=== PATIENT | female | born 1995 | race Caucasian/White ===

== ENCOUNTER 2017-01-14 14:53 | Emergency (ER) | payer OTHER ==
[~2017-01-14] VITALS: Ht 170.2 cm; Wt 62.0 kg
[2017-01-14 14:57] VITALS: BP 117/74; PULSE 66; RESP 17; TEMP 98.1; O2SAT 98
--- NOTE | 2017-01-14 15:41 | PD ---
HPI . Left eye/face pain Chief Complaint: Head Injury Time Seen by Provider: 15:17 Travel History International Travel<30 days: No Contact w/Intl Traveler<30days: No Traveled to known affect area: No History of Present Illness HPI 21-year-old female with multiple medical issues including chronic back pain receiving epidurals, knee pain and ankle injury secondary chair leaning here with complaints of left eye and facial pain. Patient was in the middle of a cheerleading routine when she was accidentally elbowed in her left eye and face. Patient is now complaining of pain in the left eye and inability to open it. She also reports some sensitivity with the light to her left eye. There is no obvious deformity, edema or ecchymosis. She tells me that the pain is present, but she declines any analgesia. She is accompanied by both of her parents. [facility] Past Medical History Medical History: Denies Significant Hx Tetanus Vaccination: < 5 Years Influenza Vaccination: No ?: Not LMP: 12/2016 Past Surgical History Appendectomy: Yes Social History Alcohol Use: No Tobacco Use: No Substance Use: No Allergies-Medications (Allergen,Severity, Reaction): Coded Allergies: No Known Allergies (Unverified , 01/14/17) Reported Meds & Prescriptions Reported Meds & Active Scripts Active No Active Prescriptions or Reported Medications Review of Systems General / Constitutional: No: Fever Eyes: Positive: Blurred Vision, Photophobia, Pain, Tearing, No: Visual changes HENT: No: Headaches Cardiovascular: No: Chest Pain or Discomfort Respiratory: No: Shortness of Breath Gastrointestinal: No: Abdominal Pain Genitourinary: No: Dysuria Musculoskeletal: No: Pain Skin: No Rash Neurologic: No: Weakness Psychiatric: No: Depression Endocrine: No: Polydipsia Hematologic/Lymphatic: No: Easy Bruising Physical Exam Narrative GENERAL: AAO x 3, no acute distress, Well-nourished, well-developed patient. SKIN: Warm and dry. No visible rashes or bruising. HEAD: Normocephalic and atraumatic. EYES: No scleral icterus. No injection or drainage. Difficult to assess EOM as patient has significant pain. She has decreased ability to open her left eye. Right eye exam in WNL. Left eye with photophobia. ENT: No nasal drainage noted. Mucous membranes pink. Airway patent. NECK: Supple, trachea midline. No JVD. CARDIOVASCULAR: Regular rate and rhythm without murmurs, gallops, or rubs. RESPIRATORY: Breath sounds equal bilaterally. No accessory muscle use. No rhonchi or rales. GASTROINTESTINAL: Abdomen soft, non-tender, nondistended. EXTREMITIES: No cyanosis or edema. BACK: Nontender without obvious deformity. No CVA tenderness. PSYCH: AAO x 3, normal affect. Data Data Last Documented VS Vital Signs Date Time Temp Pulse Resp B/P Pulse Ox O2 Delivery O2 Flow Rate FiO2 01/14/17 15:20 Room Air 01/14/17 14:57 98.1 66 17 117/[address] Facial Bones W/O Iv Cont (01/14/17 15:22) Ed Urine Pregnancytest Poc (01/14/17 15:22) Oxycodone-Acetamin 5-325 Mg (Percocet (01/14/17 17:00) MDM Medical Decision Making Medical Screen Exam Complete: Yes Emergency Medical Condition: Yes Medical Record Reviewed: Yes Differential Diagnosis orbital floor facture, facial bone fracture, less likely fb eye Narrative Course 21-year-old female with multiple medical issues including chronic back pain receiving epidurals, knee pain and ankle injury secondary chair leaning here with complaints of left eye and facial pain. Patient was in the middle of a cheerleading routine when she was accidentally elbowed in her left eye and face. Patient is now complaining of pain in the left eye and inability to open it. She also reports some sensitivity with the light to her left eye. There is no obvious deformity, edema or ecchymosis. She tells me that the pain is present, but she declines any analgesia. She is accompanied by both of her parents. Patient seen and examined. She does have some difficulty moving her left eye. I will therefore proceed with a CT scan of the facial bones to look for any type of facial fracture/ 1652: checked on pain level and patient asked for something CT still pending: orbital blowout fracture: no entrapment on exam 1739: discussed with Dr. Butt, who asked me to hold the patient so he could evaluate her. I discussed with her and her family. 1854: Still waiting on Dr. Butt. Will transition case to next provider, who will determine her disposition. Diagnosis Primary Impression: Closed blow-out fracture of left orbit Qualified Code: S02.32XA - Closed blow-out fracture of left orbit, initial encounter Scripts No Active Prescriptions or Reported Meds Condition: Stable Kym Bryant Jan 14, 2017 15:41
[2017-01-14] MEDS ORDERED: oxyCODONE/ACETAMINOPHEN 5 MG/325 MG TAB PO ONE (17:00)
--- NOTE | 2017-01-14 17:10 | RADRPT ---
EXAM DATE/TIME: 01/14/2017 16:05 [facility] COMPARISON: No previous studies available for comparison. INDICATIONS : Trauma to left orbit and face. RADIATION DOSE: 39.39 CTDIvol (mGy) MEDICAL HISTORY : None SURGICAL HISTORY : None. ENCOUNTER: Initial ACUITY: 1 day PAIN SCORE: 8/10 LOCATION: Left facial TECHNIQUE: Volumetric scanning of the facial bones was performed. Using automated exposure control and adjustme nt of the mA and/or kV according to patient size, radiation dose was kept as low as reasonably achiev able to obtain optimal diagnostic quality images. FINDINGS: ORBITS: Reconstruction show normal blowout fracture with some air surrounding the muscle belly of the inferio r and medial rectus muscles. I suspect a lamina papyracea fracture as well with some air identified i n the medial extraconal space of the left orbit. NASAL BONE: The nasal bone and maxillary spine are intact ZYGOMATIC ARCHES: Symmetric without evidence of fracture. SINUSES: Air-fluid level in the left maxillary antra does contain some high density material and probably repr esents hemorrhage. Similar mixed density collection in the superior medial aspect of the left maxilla ry antra, in the region of the blowout fracture. Minimal mucoperiosteal thickening in the right maxil sundar antra. NASAL CAVITY: The nasal septum is intact and midline. The lacrimal ducts are intact. SOFT TISSUES: No radiopaque foreign bodies seen. No soft-tissue swelling is seen. INTRACRANIAL: No intracranial air seen. CRIBIFORM PLATE: Grossly intact. CONCLUSION: 1. Findings of trauma to the left side of the face with a minimally displaced inferior orbital blowou t fracture and suspected left-sided lamina papyracea fracture as evident by air in the anteromedial a spect of the left orbit. 2. Additional air is seen adjacent to the muscle bellies of the inferior and medial rectus muscles, a djacent to the orbital blowout fracture. 3. Air-fluid level in the left maxillary antra likely represents hemorrhage with mixed increased dens ity. 4. Minimal mucoperiosteal thickening in the right maxillary antra characteristic of mild chronic sinu s disease. . Toñito Darnell MD on January 14, 2017 at 17:02 Board Certified Radiologist. This report was verified electronically.
--- NOTE | 2017-01-14 19:37 | PD ---
Physical Exam Time Seen by Provider: 19:28 Data Data Last Documented VS Vital Signs Date Time Temp Pulse Resp B/P Pulse Ox O2 Delivery O2 Flow Rate FiO2 01/14/17 15:20 Room Air 01/14/17 14:57 98.1 66 17 117/[address] Facial Bones W/O Iv Cont (01/14/17 15:22) Ed Urine Pregnancytest Poc (01/14/17 15:22) Oxycodone-Acetamin 5-325 Mg (Percocet (01/14/17 17:00) Radiology Film Requests (01/14/17 ) [facility] Medical Record Reviewed: Yes Supervised Visit with RAMSEY: No Narrative Course This patient was signed out to me pending evaluation by craniofacial surgeon Dr. Butt. Briefly this is a 21-year-old female who was at a cheerleading competition today and was elbowed in the left orbit. She is now having left orbital pain, some photophobia. On examination her pupils are equal and round and reactive to light, extraocular muscles are intact. There is some direct photophobia but no consensual photophobia. There is no hyphema or hypopyon. There is no proptosis , no conjunctival injection or ciliary flush. She does have some tenderness to palpation to the inferior orbit. There is no bruising or soft tissue swelling. CT imaging reveals an inferior orbital blowout fracture and left sided lamina fracture. 2015: Dr. Butt came and saw the patient and recommends nonoperative treatment at this time. He does want the patient to follow-up in approximately 7-10 days with a craniofacial surgeon in [facility]. He will be providing her with the name of one that he recommends. He will recommends prescriptions for pain medication as well as Keflex. The patient is stable for discharge. Discharge instructions per Dr. Butt. Diagnosis Primary Impression: Closed blow-out fracture of left orbit Qualified Code: S02.32XA - Closed blow-out fracture of left orbit, initial encounter Referrals: Oral Maxillofacial Surgeon Additional Instruction: Follow-up with a maxillofacial surgeon in 1 week as instructed. Avoid strenuous activity. Sinus precautionsno nose blowing, no close sneezing, no drinking with straws. Ice to the left face/eye region 20 minutes on/20 minutes off for 48 hours, then warm compresses to the left face 20 minutes on/20 minutes off. No sports/strenuous activities/exercise for 2 months. If you have any questions you can contact Dr. Butt at [phone] Med/Other Pt SpecificInfo: Prescription(s) given Scripts Ibuprofen 800 Mg [id number] Mg PO Q6HR PRN (PAIN) #40 TAB Ref 0 Prov:Don Frazier MD 01/14/17 Cephalexin (Keflex)500 Mg [id number] Mg PO Q8H #30 CAP Ref 0 Prov:Don Frazier MD 01/14/17 Hydrocodone-Acetaminophen (Lortab)5-325 Mg Tab1 Tab PO Q6H PRN (PAIN) #20 TAB Ref 0 Prov:Don Frazier MD 01/14/17 Disposition: 01 DISCHARGE HOME Condition: Stable Yoel Colón Jan 14, 2017 19:37
[2017-01-14] MEDS ORDERED: CEPH-460 PO (20:18)
[2017-01-14] MEDS ORDERED: IBUP800T23 PO (20:18)
[2017-01-14] MEDS ORDERED: HYDR-3533 PO (20:18)
[2017-01-14 20:49] VITALS: BP 112/52; TEMP 98.6
--- NOTE | 2017-01-15 11:07 | MB ---
cc: OSCAR BUTT DMD [facility], DATE OF CONSULTATION 01/14/2017 REASON FOR CONSULTATION Orbital floor fracture. HISTORY OF PRESENT ILLNESS This is a 21-year-old female who was in a cheer leading competition when she said that she was accidentally elbowed on the left face by another person. I have seen and examined this patient this evening. Her parents are at bedside. She is alert, awake and oriented x3 in no acute distress. Denies any fever, chills, nausea, or vomiting. Denies any visual disturbances. Denies any pain inside the eye. PAST MEDICAL HISTORY Reports mononucleosis that was treated last week. PAST SURGICAL HISTORY Appendix removed. ALLERGIES Denied SOCIAL HISTORY She denies any alcohol, tobacco any illicit drug use. PHYSICAL EXAM VITALS: Temperature 98.1, pulse is 66, respiration 17, blood pressure is 117/74 with oxygen saturation of 98%. HEAD, EYES, EARS, NOSE, AND THROAT: Pupils are equal, round and reactive to light and accommodation. Extraocular movements appear to be intact. She has an edema on the left upper eyelid region and supraorbital region. It is mild. It is effecting her eyelid going up at this point, but at this point there does not appear to be any entrapment. Facial bones and nasal bones have been all palpated. No tenderness noted. Positive range of movement of the neck. No tenderness noted. Positive good visual acuity noted. Denies any blurry vision or any double vision. Besides the left supraorbital region edema that is noted, no gross facial edema is noted at this point. CT scan of the facial bones shows a nondisplaced fracture of the left orbital floor with air fluid levels in the maxillary sinus and also some air around the orbit itself. Fracture of the left lamina papyracea is also noted. LABS None IMPRESSION AND PLAN This is a 21-year-old female who is status post an elbow to the left side of the face orbital region with a nondisplaced to minimally displaced left orbital floor fracture. I do not appreciate any gross herniation of any content. She has air-fluid levels in the left maxillary sinus and also air around the orbital region. Fracture of the lamina papyrcea. She has some edema on the left supraorbital region as well as upper eyelid region. No visual disturbances noted at this time. Extraocular movements appear to be intact at this point and including good visual acuity. We will plan to reevaluate the patient in one week. The patient is from [place]. We will have the patient's family contact me at my office and we can refer them to an oral maxillofacial surgeon in her town for a followup visit. We will discuss with the patient antibiotics, pain meds and place them on sinus precautions. All questions and concerns were addressed. At this time, there is no surgical intervention needed from oral maxillofacial surgery standpoint. Oscar Butt DMD RRT/DJKaren /8:19 PM /10:49 AM [id number]
== END 2017-01-14 21:04 | disposition home or self-care (01) ==
LOC: NEPK 14:53
DX: S02.32XA Fracture of orbital floor, left side, initial encounter for closed fracture (principal); W50.0XXA Accidental hit or strike by another person, initial encounter; Y93.45 Activity, cheerleading; Y92.9 Unspecified place or not applicable; Y99.9 Unspecified external cause status
CPT/HCPCS: 70486; 84703